=== PATIENT | female | born 1990 | race Caucasian/White ===

== ENCOUNTER 2022-10-20 15:41 | Emergency (ER) | payer OTHER ==
[~2022-10-20] VITALS: Ht 157.5 cm; Wt 108.9 kg
== END 2022-10-20 19:25 | disposition home or self-care (01) ==
LOC: ER 15:41
DX: K29.60 Other gastritis without bleeding (principal)

== ENCOUNTER 2024-04-03 10:51 | Outpatient (CLI) | payer OTHER ==
[2024-04-07 15:07] LABS: hav igm Negative (Negative); hcv Non Reactive (Non Reactive); hep b c Negative (Negative); hep b s ag Negative (Negative)
== END 2024-04-03 11:02 | disposition home or self-care (01) ==
LOC: LAB 10:51
DX: Z11.51 Encounter for screening for human papillomavirus (HPV) (principal)